=== PATIENT | female | born 1945 | race Caucasian/White ===

== ENCOUNTER 2017-08-05 21:30 | Emergency (ER) | payer MEDICARE ==
--- NOTE | 2017-08-05 23:10 | RAD ---
RIGHT HIP TWO VIEWS: History: Fall. Right hip pain. FINDINGS: There are minimal arthritic changes of the hip joint. There are no signs of fracture or dislocation. IMPRESSION: No evidence of fracture. POS: [facility]
--- NOTE | 2017-08-05 23:12 | RAD ---
AP PELVIS: History: Fall with pelvic and right hip pain. FINDINGS: Bones appear slightly demineralized. Minimal arthritic changes of the hip joints are seen. There is also some arthritic change of the lower lumbar spine. Surgical clips are seen over the pelvis. There are no signs of fracture or the bony pelvic ring. IMPRESSION: No evidence of fracture. POS: [facility]
== END 2017-08-06 00:15 | disposition home or self-care (01) ==
LOC: ERS 21:30
DX: S70.01XA Contusion of right hip, initial encounter (principal); Z79.899 Other long term (current) drug therapy; W01.0XXA Fall on same level from slipping, tripping and stumbling without subsequent striking against object, initial encounter
CPT/HCPCS: 72170; 93005

== ENCOUNTER 2019-03-27 10:09 | Emergency (ER) | payer MEDICARE ==
--- NOTE | 2019-03-27 10:47 | RAD ---
RIGHT HAND 3 VIEWS: Date: 03/27/19 HISTORY: Trauma. FINDINGS: Degenerative changes at the first carpometacarpal and intercarpal joints. 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 No acute fracture identified. IMPRESSION: No acute fracture. POS: [facility]
== END 2019-03-27 11:00 | disposition home or self-care (01) ==
LOC: SCSER 10:09
DX: S61.011A Laceration without foreign body of right thumb without damage to nail, initial encounter (principal); I10 Essential (primary) hypertension; W25.XXXA Contact with sharp glass, initial encounter